=== PATIENT | female | born 1945 | race Caucasian/White ===

== ENCOUNTER 2017-02-13 11:07 | Outpatient (CLI) ==
--- NOTE | 2017-02-14 09:24 | MAMMO ---
EXAM: Digital screening mammogram HISTORY: Screening COMPARISON: 02/08/2016 FINDINGS: Digital MLO and CC views of the right and left breast were performed. There are scatter ed fibroglandular densities. There is no evidence for mass, asymmetry, distortion, or suspicious ca lcifications in either breast. IMPRESSION: 1. No evidence of malignancy in the right or left breast. 2. Annual screening mammogram is recommended in one year. BIRADS category 1, negative examination
== END 2017-02-13 11:08 | disposition home or self-care (01) ==
LOC: RAD 11:07
PROVIDERS: ATTEND Family Medicine
DX: Z12.31 Encounter for screening mammogram for malignant neoplasm of breast (principal)

== ENCOUNTER 2017-06-12 07:41 | Day surgery (SDC) ==
[2017-06-12] MEDS ORDERED: DIPRIVAN 20 ML VIAL IVP ONE (10:19)
[2017-06-12] MEDS ORDERED: VERSED ONE (10:19)
[2017-06-12 11:59] VITALS: BP 116/70; TEMP 98.6
--- NOTE | 2017-06-13 10:29 | OP ---
INDICATIONS FOR PROCEDURE: 71-year-old female presents for colonoscopy exam. She has a history of adenomatous polyps with last colonoscopy 7 years ago. Her half brother had colon cancer. MEDICATIONS: SEE ANESTHESIA NOTES. PROCEDURE: COLONOSCOPY, SNARE POLYPECTOMY. REPORT: The risks, benefits, alternatives and limitations were discussed in detail with the patient. Informed consent was obtained. After adequate sedation was achieved, a digital rectal exam revealed good tone, no masses. The colonoscope was introduced into the rectum and advanced under direct visual guidance to the cecum. The cecum was identified by the appendiceal orifice and IC valve. I then slowly withdrew the scope in a circumferential manner examining the mucosa quite carefully. I looked at the proximal and distal side of folds and flexures as best as possible. I was able to retroflex the scope in the right colon and left colon to increase visualization. In the cecum there is a sessile 6 mm slightly raised polyp that I removed by snare technique. In the cecum in the proximal ascending colon there was also two AVMs. At the ascending colon there is a diminiutive polyp destroyed in a snare technique and at the hepatic flexure there is a diminutive polyp that was destroyed by snare technique. In the proximal transverse colon there are four polyps ranging in size from 5 mm to 9 mm slightly raised. These were all removed by snare technique. Withdrawing the scope further revealed two polyps in the proximal descending colon, one was about 6 mm and slightly raised and the other one was 11 mm to 12 mm and slightly raised. Both of these polyps were removed and placed in their own pathology jar together. The larger polypectomy site, I placed an endoclip to help prevent bleeding. Withdrawing the scope further revealed five polyps in the distal sigmoid all ranging in size from 5 to 6 mm and sessile, all five are removed by snare technique. In the rectum on retroflex view there was a diminutive polyp that I destroyed using a snare. There was a non engorged hemorrhoidal vein. The prep was fairly good. There was some liquid stool scattered throughout that I was able to suction and wash away. The patient tolerated the procedure well with stable vital signs and pulse oximetry throughout. The withdrawal time was 20 minutes and 10 seconds. IMPRESSION: 1. Sixteen (16) polyps removed as above. 2. Two (2) small AVMs in the proximal colon. 3. Small internal hemorrhoid. RECOMMENDATIONS: 1. High fiber diet. 2. Office visit as needed. 3. Await pathology results; if everything is benign, I recommend repeat colonoscopy examination again in one year, sooner if signs or symptoms would indicate otherwise. CC: DR. CHULA WYMAN
== END 2017-06-12 12:12 | disposition home or self-care (01) ==
LOC: SURG 07:41
PROVIDERS: ATTEND Internal Medicine Gastroenterology
DX: Z09 Encounter for follow-up examination after completed treatment for conditions other than malignant neoplasm (principal); Z86.010 Personal history of colon polyps; D12.0 Benign neoplasm of cecum; D12.4 Benign neoplasm of descending colon; D12.5 Benign neoplasm of sigmoid colon; D12.3 Benign neoplasm of transverse colon; Q27.33 Arteriovenous malformation of digestive system vessel; K64.8 Other hemorrhoids; Z80.0 Family history of malignant neoplasm of digestive organs

== ENCOUNTER 2018-02-20 11:05 | Outpatient (CLI) | payer OTHER ==
--- NOTE | 2018-02-22 09:12 | MAMMO ---
EXAM: Digital screening mammogram with tomosynthesis HISTORY: Screening COMPARISON: 02/13/2017 FINDINGS: Digital MLO and CC views of the right and left breast were performed. Tomosynthesis was p erformed. Computer aided detection utilized. There are scattered fibroglandular densities. There is no evidence for mass, asymmetry, distortion, or suspicious calcifications in either breast. IMPRESSION: 1. No evidence of malignancy in the right or left breast. 2. Annual screening mammogram is recommended in one year. BIRADS category 1, negative examination
== END 2018-02-20 11:06 | disposition home or self-care (01) ==
LOC: RAD 11:05
PROVIDERS: ATTEND Family Medicine
DX: Z12.31 Encounter for screening mammogram for malignant neoplasm of breast (principal)
CPT/HCPCS: 77067

== ENCOUNTER 2018-11-29 09:09 | Outpatient (CLI) | END 2018-11-29 09:10 | disposition home or self-care (01) | LOC: LAB 09:09 | PROVIDERS: ATTEND Family Medicine | DX: E53.8 Deficiency of other specified B group vitamins (principal) | CPT/HCPCS: 36415; 82607 ==